=== PATIENT | female | born 1995 | race Hispanic/Latino ===

== ENCOUNTER 2017-07-10 03:39 | Emergency (ER) | payer OTHER ==
[~2017-07-10] VITALS: Ht 154.9 cm; Wt 61.2 kg
[~2017-07-10 03:39] MED LIST: BACLOFEN10 MG PO; BIRTH CONTROL PO; DEPO-PROVE150 MG/1 M IM; DOXYCYCLINE HY100 MG PO; FLOMAX0.4 MG PO; KETOROLAC TROME10 MG PO; LEVAQUIN500 MG PO; LOW-OGESTREL1 EACH PO; MACROBID 100 M100 MG PO; MOTRIN IB200 MG PO; NORCO 5-325 TA1 EACH PO; PAXIL20 MG PO; PERCOCET 5-3251 EACH PO; PYRIDIUM200 MG PO; SPRINTEC1 EACH PO; TYLENOL325 MG PO; XANAX0.5 MG PO; ZOFRAN ODT8 MG PO; ZOFRAN4 MG PO
[2017-07-10] MEDS ORDERED: WOMAN'S LAXATIVE5 M1 PO (03:50)
== END 2017-07-10 06:07 | disposition home or self-care (01) ==
LOC: ED 03:39
DX: O99.89 Other specified diseases and conditions complicating pregnancy, childbirth and the puerperium (principal); K59.00 Constipation, unspecified; O99.321 Drug use complicating pregnancy, first trimester; Z87.442 Personal history of urinary calculi; Z87.891 Personal history of nicotine dependence; Z88.0 Allergy status to penicillin; Z79.899 Other long term (current) drug therapy; Z3A.13 13 weeks gestation of pregnancy
CPT/HCPCS: 80053; 81001; 83690; 85025; 87088; 96374; 99283; J2405

== ENCOUNTER 2017-12-13 11:34 | Inpatient (IN) | payer OTHER ==
[~2017-12-13] VITALS: Ht 154.9 cm; Wt 70.0 kg
--- OUTSIDE RECORDS SUMMARY | ~2017-12-13 | XMS ---
Demographics + + + | Address | [address] | | | [place] [address] | + + + | Preferred Language | Unknown | + + + | Marital Status | Unknown | + + + | Episcopalian Affiliation | Unknown | + + + | Race | Unknown | + + + | Ethnic Group | Unknown | + + + Author + + + | Author | [facility] | + + + | Organization | [facility] | + + + | Address | [address] | | | [place] [address] | + + + | Phone | | + + + Care Team Providers + + + + | Care Bi Developer Name | Role | Phone | + + + + Unavailable | Unavailable | + + + + PROBLEMS +---------+ + + +--------+ + + | Type | Condition | ICD9-CM | [id number] | Onset | Condition | SNOMED | | | | Code | Code | Dates | Status | Code | +---------+ + + +--------+ + + | Problem | Low | E55.9 | | | Active | [id number] | | | vitamin D | | | | | | | | level | | | | | | +---------+ + + +--------+ + + | Problem | Irregular | N92.1 | | | Active | [id number] | | | intermenst | | | | | | | | rual | | | | | | | | bleeding | | | | | | +---------+ + + +--------+ + + | Problem | Helicobact | A04.8 | | | Active | 45552589 | | | er pylori | | | | | | | | (H. | | | | | | | | pylori) | | | | | | +---------+ + + +--------+ + + | Problem | Thoracic | M54.6 | | | Active | [id number] | | | back pain | | | | | | +---------+ + + +--------+ + + | Problem | GERD | | K21.9 | | Active | [id number] | | | (gastroeso | | | | | | | | phageal | | | | | | | | reflux | | | | | | | | disease) | | | | | | +---------+ + + +--------+ + + | Problem | Encounter | Z34.90 | | | Active | 28457892 | | | for | | | | | | | | supervisio | | | | | | | | n of | | | | | | | | normal | | | | | | | | | | | | | | +---------+ + + +--------+ + + | Problem | Family | Z80.3 | | | Active | [id number] | | | history of | | | | | | | | breast | | | | | | | | cancer | | | | | | +---------+ + + +--------+ + + | Problem | Right hip | M25.551 | | | Active | [id number] | | | pain | | | | | [address] | +---------+ + + +--------+ + + | Problem | Lower back | M54.5 | | | Active | [id number] | | | pain | | | | | | +---------+ + + +--------+ + + | Problem | Lumbar | M54.16 | | | Active | 620710175 | | | radicular | | | | | | | | pain | | | | | | +---------+ + + +--------+ + + | Problem | Allergic | T65.91XA | | | Active | | | | reaction | | | | | | | | to | | | | | | | | chemical | | | | | | | | substance | | | | | | +---------+ + + +--------+ + + ALLERGIES No Information SOCIAL HISTORY Never Assessed PLAN OF CARE VITAL SIGNS MEDICATIONS Unknown Medications RESULTS No Results PROCEDURES No Known procedures IMMUNIZATIONS No Known Immunizations MEDICAL (GENERAL) HISTORY + + +------+ | Type | Description | Date | + + +------+ | Medical History | frequent kidney stones | | + + +------+ | Medical History | depression - no meds | | + + +------+ | Medical History | back pain - scoliosis | | + + +------+ | Medical History | Abnormal PAP's since age 14 | | + + +------+ | Medical History | Yeast UTI | | + + +------+ | Medical History | Renal colic | | + + +------+ | Medical History | Scoliosis | | + + +------+ | Surgical History | Ureteroscopic kidney stone | | | | removal - Dr. Arriola | | + + +------+ | Surgical History | c section 2009 Dr. Delgado | | + + +------+"
[~2017-12-13 11:34] MED LIST changes: +WOMAN'S LAXATIVE5 M1 PO
--- NOTE | 2018-01-06 08:31 | NUR ---
01/06/18 0831 Geri Ramos 0822 PATIENT ARRIVES TO ROOM 104 AWAKE, ALERT AND ORIENTED X3. RESP EVEN AND UNLABORED. PATIENT DENIES PAIN OR NAUSEA. PATIENT HAD SHAKING DURING PROCEDURE, BUT IMPROVING NOW.
--- NOTE | 2018-01-07 07:50 | PR ---
[facility] [address] [facility] [place], [place] [address] Signed PP Progress Notes Datetime Report Generated by CPN: 01/07/2018 07:50 SUBJECTIVE: [id number] Pain: Within normal limits Nausea/Vomiting: Denies Flatus: Yes Bowel Movement: No Vital Signs: [id number] Vital Signs: Reviewed; Within Normal Limits EXAM: [id number] Cardiovascular: Normal Respiratory: Normal Abdomen/Uterus: Normal Lochia: Normal Vulva/Perineum: Normal Breasts: Normal CVA Tenderness: Normal Extremities: Abnormal Incision: Normal Progress: Normal Exam Comments: pedal edema - 2+ IMPRESSION/PLAN/PROCEDURES: [id number] Impression: Normal progression Plan: Continue present management Procedures: None Progress Notes: patient doing well with pain management and breast feeding Signing Physician: Ana Benjamin MD Copies: ~ *Electronically Signed* 01/07/18 0750 ANA BENJAMIN MD PATIENT NAME: CHAD BETANCUR PROGRESS NOTE DATE OF : [birth year] PHYSICIAN: ANA BENJAMIN MD RPT #: [id number] REPORT IS CONFIDENTIAL AND NOT TO BE RELEASED WITHOUT AUTHORIZATION
--- NOTE | 2018-01-08 11:21 | PR ---
[facility] [address] [facility] [place], [place] [address] Signed PP Progress Notes Datetime Report Generated by CPN: 01/08/2018 11:21 SUBJECTIVE: [id number] Pain: Within normal limits Nausea/Vomiting: Denies Flatus: Yes Bowel Movement: Yes Vital Signs: [id number] Vital Signs: Reviewed; Within Normal Limits EXAM: [id number] Cardiovascular: Normal Respiratory: Normal Abdomen/Uterus: Normal Lochia: Normal Vulva/Perineum: Normal Breasts: Normal CVA Tenderness: Normal Extremities: Normal Incision: Normal Progress: Normal Exam Comments: pedal edema - 2+ IMPRESSION/PLAN/PROCEDURES: [id number] Impression: Normal progression Plan: Continue present management Procedures: None Progress Notes: patient doing well. Pain management doing well. Signing Physician: Ana Benjamin MD Copies: ~ *Electronically Signed* 01/08/18 1121 ANA BENJAMIN MD PATIENT NAME: CHAD BETANCUR PROGRESS NOTE DATE OF : [birth year] PHYSICIAN: ANA BENJAMIN MD RPT #: [id number] REPORT IS CONFIDENTIAL AND NOT TO BE RELEASED WITHOUT AUTHORIZATION
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
== END 2018-01-09 11:30 | disposition home or self-care (01) | DRG 765 ==
LOC: FBC 01-06 05:01
PROVIDERS: ADMIT Obstetrics & Gynecology
PROC: 10D00Z1 Extraction of Products of Conception, Low, Open Approach (ICD-10-PCS; principal; 2018-01-06 06:45)
DX: O34.211 Maternal care for low transverse scar from previous cesarean delivery (principal); O99.324 Drug use complicating childbirth; F11.10 Opioid abuse, uncomplicated; O9A.32 Physical abuse complicating childbirth; F12.90 Cannabis use, unspecified, uncomplicated; Z3A.39 39 weeks gestation of pregnancy; Z37.0 Single live birth; O99.344 Other mental disorders complicating childbirth; F41.9 Anxiety disorder, unspecified
CPT/HCPCS: 01961; 36415; 85027; C1763; J0690; J1885; J2175; J2274; J2405; J2550; J2590; J3010; J7120

== ENCOUNTER 2018-03-31 11:34 | Emergency (ER) | payer OTHER ==
[~2018-03-31] VITALS: Ht 154.9 cm; Wt 59.0 kg
[2018-03-31] MEDS ORDERED: ZOFRAN ODT4 MG PO (11:56)
[2018-03-31] MEDS ORDERED: BUPRENORPHIN-N1 EACH SL (11:56)
[2018-03-31] MEDS ORDERED: VITAFOL-OB+DHA1 EACH PO (11:57)
== END 2018-03-31 14:16 | disposition home or self-care (01) ==
LOC: ED 11:34
DX: R10.12 Left upper quadrant pain (principal); F17.200 Nicotine dependence, unspecified, uncomplicated; Z88.0 Allergy status to penicillin; Z79.899 Other long term (current) drug therapy
CPT/HCPCS: 74176; 80053; 81001; 83690; 84703; 85025; 96374; 96375; 99284; J1885; J2405

== ENCOUNTER 2018-04-10 20:40 | Emergency (ER) | payer OTHER ==
[~2018-04-10 20:40] MED LIST changes: +BUPRENORPHIN-N1 EACH SL; +VITAFOL-OB+DHA1 EACH PO; +ZOFRAN ODT4 MG PO
[2018-04-10] MEDS ORDERED: NORCO 5-325 TA1 EACH PO (23:41)
== END 2018-04-10 23:52 | disposition home or self-care (01) ==
LOC: ED 20:40
DX: N20.1 Calculus of ureter (principal); F17.200 Nicotine dependence, unspecified, uncomplicated; Z88.0 Allergy status to penicillin; Z79.899 Other long term (current) drug therapy
CPT/HCPCS: 74176; 81001; 84703; 96372; 99284; J1885

== ENCOUNTER 2018-11-06 02:18 | Emergency (ER) | payer OTHER ==
[~2018-11-06] VITALS: Ht 154.9 cm; Wt 59.0 kg
== END 2018-11-06 03:55 | disposition home or self-care (01) ==
LOC: ED 02:18
DX: J06.9 Acute upper respiratory infection, unspecified (principal); F17.200 Nicotine dependence, unspecified, uncomplicated; Z88.0 Allergy status to penicillin
CPT/HCPCS: 87081; 87880; 99283

== ENCOUNTER 2020-03-28 17:38 | Emergency (ER) | payer OTHER ==
[~2020-03-28] VITALS: Ht 154.9 cm; Wt 59.0 kg
--- OUTSIDE RECORDS SUMMARY | 2020-03-28 17:42 | XMS ---
PreManage Notification: CHAD BETANCUR Security Esl Tutor Events No recent Security Events currently on file CRITERIA MET - PDM CARE PROVIDERS [facility] Current PHONE: Unknown Neema has no Care Guidelines for this patient. EIraj VISIT COUNT (12 MO.) 1 [place] [address] [place] TOTAL 2 NOTE: Visits indicate total known visits. ED/UCC VISIT TRACKING (12 MO.) 03/28/2020 17:40 [facility] [place] TYPE: Emergency COMPLAINT: - POSSIBLE 01/05/2020 13:35 [facility] [place] TYPE: Emergency DIAGNOSES: - POSS KIDNEY STONES - Acute cystitis with hematuria INPATIENT VISIT TRACKING (12 MO.) No inpatient visits to display in this time frame [email or web address]
== END 2020-03-28 19:41 | disposition left against medical advice (07) ==
LOC: ED 17:38
DX: Z53.21 Procedure and treatment not carried out due to patient leaving prior to being seen by health care provider (principal)

== ENCOUNTER 2021-03-01 01:48 | Emergency (ER) | payer SELFPAY ==
[~2021-03-01] VITALS: Ht 154.9 cm; Wt 59.0 kg
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
[2021-03-01] MEDS ORDERED: CLINDAMYCIN HC300 MG PO (02:07)
[2021-03-01] MEDS ORDERED: ACYCLOVIR200 MG PO (02:07)
== END 2021-03-01 02:50 | disposition home or self-care (01) ==
LOC: ED 01:48
DX: L98.9 Disorder of the skin and subcutaneous tissue, unspecified (principal); F17.200 Nicotine dependence, unspecified, uncomplicated; Z88.0 Allergy status to penicillin
CPT/HCPCS: 80053; 84443; 85025; 99284

== ENCOUNTER 2021-12-25 09:14 | Emergency (ER) | payer MEDICAID ==
[~2021-12-25] VITALS: Ht 154.9 cm; Wt 47.6 kg
[~2021-12-25 09:14] MED LIST changes: +ACYCLOVIR200 MG PO; +CLINDAMYCIN HC300 MG PO
--- OUTSIDE RECORDS SUMMARY | 2021-12-25 09:26 | XMS ---
PreManage Notification: CHAD BETANCUR Security Senior Inspector Events No recent Security Events currently on file CRITERIA MET - Group Notification CARE PROVIDERS KARMA SPENCER Physician [employer] Iron [employer] Current PHONE: [phone] RUBY MACKENZIE Internal Medicine: Pulmonary Disease 03/29/2020-Current PHONE: Unknown Neema has no Care Guidelines for this patient. Peter VISIT COUNT (12 MO.) [address] [facility] [place] TOTAL 3 NOTE: Visits indicate total known visits. ED/UCC VISIT TRACKING (12 MO.) 12/25/2021 09:[address] [facility] [place] TYPE: Emergency COMPLAINT: - DIZZY, FATIGUE 05/26/2021 20:28 [facility] TYPE: Emergency DIAGNOSES: - Other psychoactive substance abuse, uncomplicated - Lab Test - Covid Testing - Withdrawal - Contact with and (suspected) exposure to covid-19 - Acute cystitis without hematuria 03/01/2021 01:49 [facility] [place] TYPE: Emergency COMPLAINT: - MOUTH SORES, SKIN INFECTION DIAGNOSES: - Nicotine dependence, unspecified, uncomplicated - Allergy status to penicillin - Disorder of the skin and subcutaneous tissue, unspecified INPATIENT VISIT TRACKING (12 MO.) No inpatient visits to display in this time frame [id number]
== END 2021-12-25 15:58 | disposition home or self-care (01) ==
LOC: ED 09:14
DX: O36.4XX0 Maternal care for intrauterine death, not applicable or unspecified (principal); F17.200 Nicotine dependence, unspecified, uncomplicated; Z88.0 Allergy status to penicillin; Z79.899 Other long term (current) drug therapy
CPT/HCPCS: 36415; 76801; 76817; 81001; 84702; 84703; 86900; 87088; 87491; 99284-25